=== PATIENT | male | born 1980 | race Hispanic/Latino ===

== ENCOUNTER 2024-03-13 20:24 | Emergency (ER) | payer OTHER, SELFPAY ==
[2024-03-13 20:27] VITALS: BP 224/126
[2024-03-13 21:14] VITALS: BP 168/103
[2024-03-13 21:16] VITALS: BMI 44.2
[2024-03-13 21:32] LABS: % Basophils 1.1 % (0-2); % Eosinophils 3.5 % (0-6); % Immature Granulocytes 0.3 % (0-0.5); % Lymphocytes 26.4 % (20.5-51.1); % Monocytes 9.4 % (1.7-9.3); % Neutrophils 59.3 % (42.2-75.2); Absolute Basophils 0.1 10^3/uL (0-0.2); Absolute Eosinophils 0.4 10^3/uL (0-0.7); Absolute Lymphocytes 2.7 10^3/uL (1.2-3.4); Hematocrit 39.6 % (39.0-52.0); Hemoglobin 13.7 g/dL (13.0-18.0); Mean Corp Hgb Conc. 34.6 g/dL (33.0-37.0); Mean Corpuscular Hgb 28.3 pg (27.0-31.0); Mean Corpuscular Volume 81.8 fL (80.0-94.0); Mean Platelet Volume 8.9 fL (7.4-10.4); Nucleated Red Blood Cells % 0 % (-); Platelet Count 221 10^3/uL (130-400); Red Blood Cell Count 4.84 10^6/uL (4.70-6.10); Red Cell Dist. Width 12.2 % (11.5-14.5); White Blood Cell Count 10.2 10^3/uL (4.8-10.8)
[2024-03-13 21:46] LABS: ALT (SGPT) 166 U/L (0-50); AST (SGOT) 87 U/L (17-59); Albumin 4.8 g/dl (3.5-5.0); Alkaline Phosphatase 53 U/L (38-126); Blood Urea Nitrogen 17 mg/dl (9-20); Calcium 9.4 mg/dl (8.4-10.2); Carbon Dioxide 21 mmol/L (22-30); Chloride 104 mmol/L (98-107); Estimated Creatinine Clearance > 125 ml/min; Glucose 114 mg/dl (70-99); Potassium 3.9 mmol/L (3.5-5.1); Sodium 141 mmol/L (135-145); Total Bilirubin 0.4 mg/dl (0.2-1.3); Total Protein 7.5 g/dl (6.3-8.2); eGFR > 60.00
[2024-03-13] MEDS: MAALOX 30 ML PO (21:49)
[2024-03-13] MEDS: MOTRIN 800 MG PO (21:49)
[2024-03-13] MEDS: PEPCID 20 MG PO (21:49)
--- NOTE | 2024-03-13 21:52 | ED.GENMED ---
History of Present Illness
General
Chief Complaint: Weakness
Time Seen by Provider: 03/13/24 21:00
History of Present Illness
History of Present Illness:
Patient is a 44-year-old man presenting to the emergency department feeling unwell. Patient states for the past few days has been having muscle aches. Today he developed the chills, palpitations was lightheaded dizzy. He been having congestion.
He is also been having worsening heartburn. Initially told nursing that he had chest pain however denied that to me. States that he felt like he was going to pass out so he checked his blood pressure and it was elevated. He is not on any
antihypertensives. He denies any shortness of breath. No sick contacts. No urinary symptoms.
Past History
Past History
ED Past Medical History: HTN
ED Past Surgical History: None and Orthopedic
Patient has exhibited threatening behavior?: No
PSI?: No
Social History
Tobacco: Smoker
Alcohol: Daily (6-8 beers/day)
Drug: None
Personal: Single
Living: with family
Employment: Employed
Phy Exam
Physical Exam
Physical Exam:
GENERAL: in no acute distress
HEENT: normocephalic, extraocular movements intact, moist oral mucosa, bilateral tonsilar hypertrophy with eryethema, no exudates
NECK: normal inspection
RESPIRATORY: no respiratory distress, clear to auscultation bilaterally
CARDIOVASCULAR: regular rate and rhythm
ABDOMEN/: soft, non-distended, non-tender to palpation, no rebound or guarding
EXTREMITIES: non-tender, no edema/swelling
NEUROLOGIC: awake and alert, moves all extremities
SKIN: warm
Course
Orders/Labs/Results
Orders:
Orders
03/13/24 20:29
ECG [Electrocardiogram (*1)] Urgent
Reason for Study: Chest Pain
EKG- Treatment ONCE
03/13/24 21:22
Cardiac Monitoring- Treatment ONCE
IV Insert/Care/Rem.- Treatment PRN
Pulse Ox/spot Check [RESP] Urgent
Quantity: 1
Special Instructions: ON ROOM AIR
03/13/24 21:23
Acetaminophen Urgent
Comment: ADD ON
Complete Blood Count/With Diff Urgent
Comprehensive Metabolic Panel Urgent
Troponin I Urgent
03/13/24 21:37
Famotidine [Pepcid] 20 mg PO NOW STA
Ibuprofen [Motrin] 800 mg PO NOW STA
Mag Hydrox/Al Hydrox/Simeth [Maalox] 30 ml PO NOW STA
CR Chest - 2 Views Urgent
Comment:
Reason For Exam: sob
03/13/24 21:48
COVID-19 Antigen Stat
Source: Nasal Swab
Monotest Stat
Influenza A+B Rapid Molecular Urgent
DEBRA Source: Nasal Swab
Specimen Description:
Rapid Strep Group A Stat
DEBRA Source: Throat/Pharynx
Specimen Description:
Date Specimen was Collected: 03/13/24
Time Specimen was Collected: 21:42
03/13/24 21:53
US Abdomen Complete/Upper Urgent
Comment:
Reason For Exam: abnormal lft
03/13/24 21:58
Add On- LAB Stat
Tests Added?: tylenol level
03/13/24 22:49
Doxycycline [Vibramycin] 100 mg PO NOW STA
Abnormal Lab Results
03/13/24
21:23
Absolute Monos (auto) 1.0 H 10^3/uL
(0.1-0.6)
Monocytes % 9.4 H %
(1.7-9.3)
Carbon Dioxide 21 L mmol/L
(22-30)
Glucose 114 H mg/dl
(70-99)
AST 87 H U/L
(17-59)
ALT 166 H U/L
(0-50)
Acetaminophen < 10 L ug/ml
(10-30)
03/13/24 21:23
03/13/24 21:23
Vital Signs
Initial and Last Documented VS:
Initial Vital Signs
Temp Pulse Resp BP Pulse Ox
99.5 F 94 18 224/126 93
03/13/24 20:27 03/13/24 20:27 03/13/24 20:27 03/13/24 20:27 03/13/24 20:27
Last Documented Vital Signs
Temp Pulse Resp BP Pulse Ox
99.5 F 85 21 143/83 95
03/13/24 20:27 03/13/24 23:00 03/13/24 23:00 03/13/24 23:00 03/13/24 23:00
MDM/Problems Addressed
Differential Diagnosis Includes:
Patient is a 44-year-old man presenting to the emergency department 1 day of chills palpitations congestion and lightheadedness dizziness. Vitals here are notable for hypertension and exam is otherwise reassuring. Differential is broad but
consists of viral URI versus gastritis versus pneumonia versus electrolyte derangement. Will check blood work EKG strep mono COVID flu and obtain chest x-ray. Patient was educated on the importance of obtaining a blood pressure log so we can be
started antihypertensives with his PCP.
*Critical Care Note
Total Time (30-74mins, 75-104mins- exclusive of procedures): Not Applicable
Update Note
Update Note:
Chest x-ray per my interpretation with haziness over the left side of the cardiac silhouette. Will treat as pneumonia with doxycycline. Blood work does show transaminitis with ALT greater than AST. I did add on Tylenol level which was negative.
Will obtain abdominal ultrasound.
Ultrasound consistent with hepatomegaly. Patient will follow with the PCP. Will discharge at this time.
ED Attending Note
-
Portions of this chart may have been created with voice recognition software.� Occasional wrong word or��sound alike� substitutions may have occurred due to the inherent limitations of voice recognition software.
Discharge Plan
Departure
Patient Disposition: Home (Routine Discharge)
Date of Disposition: 03/13/24
Time of Disposition: 23:24
Patient with high blood pressure during this ER visit?: Yes
Discharge Problem:
Pneumonia, Abnormal LFTs
Prescriptions:
New
doxycycline hyclate 100 mg capsule
100 mg PO BID 5 Days Qty: 10 0RF
Referrals:
[facility] [Outside]
NONE,* [Family Provider] -
Activity Restrictions/Additional Instructions:
You were seen in the Emergency Department today for. You are found to have pneumonia. Please take the antibiotics as prescribed. Your liver function tests were elevated. Please follow-up with your primary care doctor to have them rechecked next
week.
We would like for you to follow up with your primary care physician for further evaluation. If you experience fever, worsening of your symptoms, or develop any other new or concerning symptoms, please return to the Emergency Department immediately.
Please see the attached sheet for additional information.
Interventions
Interventions:
*Risk Screen - Suicide Last Done: 03/13/24 20:25
*General Assessment Last Done: 03/13/24 20:27
*Neglect/Abuse Screening Last Done: 03/13/24 20:27
*ED COVID-19 Vaccine History Last Done: 03/13/24 21:16
ED- Cardiac Assessment Last Done: 03/13/24 21:31
ED- Neurological Assessment Last Done: 03/13/24 21:31
ED- Pulmonary Assessment Last Done: 03/13/24 21:31
Discharge Date and Time
Print Language: [id number]
[2024-03-13 21:57] LABS: Troponin I < 0.012 ng/ml
[2024-03-13 22:00] VITALS: BP 157/91
[2024-03-13 22:20] LABS: COVID-19 Antigen Negative (Negative)
[2024-03-13 22:22] LABS: Monotest Negative (Negative)
[2024-03-13 22:29] LABS: Acetaminophen < 10 ug/ml (10-30)
[2024-03-13 22:47] VITALS: BP 171/101
[2024-03-13] MEDS: VIBRAMYCIN 100 MG PO (22:58)
[2024-03-13 23:00] VITALS: BP 143/83
== END 2024-03-13 23:36 | disposition home or self-care (01) ==
LOC: EMR 20:24
PROVIDERS: EMERGENCY PHYSICIAN Student in an Organized Health Care Education/Training Program
DX: J18.9 Pneumonia, unspecified organism (principal); R94.5 Abnormal results of liver function studies; R00.2 Palpitations; R42 Dizziness and giddiness; R12 Heartburn; M79.10 Myalgia, unspecified site; Z11.52 Encounter for screening for COVID-19; R16.0 Hepatomegaly, not elsewhere classified; I10 Essential (primary) hypertension; F17.200 Nicotine dependence, unspecified, uncomplicated
CPT/HCPCS: 99285; 94760; 71046; 76700; 80053; 80143; 84484; 85025; 86308; 87070; 87502; 87811; 87880; 93005

== ENCOUNTER → 2024-07-23 07:58 | Outpatient (REF) | payer OTHER, SELFPAY | LOC: HWRAD 07:58 | PROVIDERS: ATTENDING PHYSICIAN Student in an Organized Health Care Education/Training Program | DX: L72.9 Follicular cyst of the skin and subcutaneous tissue, unspecified (principal) | CPT/HCPCS: 76705 ==